=== PATIENT | male | born 1970 | race Caucasian/White ===

== ENCOUNTER 2022-03-13 10:53 | Day surgery (SDC) | payer OTHER ==
[2022-03-08 12:32] VITALS: BMI 33.0
[2022-03-13 12:55] VITALS: BP 124/77; PULSE 72; TEMP 97.7
== END 2022-03-13 13:26 | disposition home or self-care (01) ==
LOC: FASU-ENDO 10:53
PROVIDERS: ATTEND Internal Medicine Gastroenterology
PROC: 0DJD8ZZ Inspection of Lower Intestinal Tract, Via Natural or Artificial Opening Endoscopic (ICD-10-PCS; principal; 2022-03-13 12:14)
DX: Z12.11 Encounter for screening for malignant neoplasm of colon (principal); K64.1 Second degree hemorrhoids